=== PATIENT | male | born 1945 | race Caucasian/White ===

== ENCOUNTER → 2024-04-17 07:06 | Outpatient (REF) | payer OTHER, SELFPAY | LOC: RCS 07:06 | PROVIDERS: ATTENDING PHYSICIAN Internal Medicine Cardiovascular Disease; FAMILY PHYSICIAN Family Medicine | DX: E78.2 Mixed hyperlipidemia (principal); I20.89 Other forms of angina pectoris; I45.10 Unspecified right bundle-branch block | CPT/HCPCS: 93017 ==

== ENCOUNTER → 2024-04-20 08:01 | Outpatient (REF) | payer OTHER, SELFPAY | LOC: RCS 08:01 | PROVIDERS: ATTENDING PHYSICIAN Internal Medicine Cardiovascular Disease; FAMILY PHYSICIAN Family Medicine | DX: I20.89 Other forms of angina pectoris (principal); E78.2 Mixed hyperlipidemia; I45.10 Unspecified right bundle-branch block | CPT/HCPCS: 93306 ==

== ENCOUNTER 2024-04-20 08:55 | Day surgery (SDC) | payer OTHER, SELFPAY ==
[2024-04-20] VITALS (13 sets, daily range): BP systolic 104–117; BP diastolic 55–63; BMI 23.2
[2024-04-20] MEDS: LOW STRENGTH ASPIRIN 243 MG PO (09:46)
--- NOTE | 2024-04-20 13:32 | ITS.CL.CATH ---
[employer]ourier Delivery Driver - Catheterization
Cardiac Catheterization
Procedure Report:
CARDIAC CATHETERIZATION REPORT
Date of Procedure: 04/20/2024
Referring: Edgar Hernandez MD
Indication: Angina with abnormal stress test
�
HEMODYNAMIC DATA
AO: 138/75
LV: 138/14
�
LEFT VENTRICULOGRAPHY: Normal left ventricular wall motion with EF 57%
�
CORONARY ANGIOGRAPHY
Dominance: Right
Left Main: Normal
LAD: There is a medium distribution ramus intermedius with 95% proximal stenosis. 30% proximal LAD stenosis and tandem 30% mid LAD stenoses. The large D1 has mild luminal disease. The small to medium sized D2 has diffuse moderate disease
Circumflex: The circumflex gives rise to a tiny OM1 and OM 2 vessels followed by a small OM 3 and a large terminal OM 4. There is 80% mid circumflex stenosis proximal to the takeoff of OM 3 and 90% proximal OM 4 stenosis
RCA: Large dominant vessel with 20% proximal RCA stenosis and otherwise trivial luminal irregularities
Angioplasty: At the conclusion of the diagnostic study, the patient underwent multivessel intervention. Heparin was used for anticoagulation. Plavix 600 mg was administered at the procedure conclusion. An EBU 3.5 guide catheter was used. The
tandem 80% mid circumflex and 90% proximal [id number] were wired with a BMW wire. A second BMW wire was placed in the LAD ramus across the high-grade disease. We were unable to primarily stent the circumflex lesions and performed predilatation
with a 2.5 x 15 Euphora balloon. This allowed easy passage of the 3.25 x 15 Xience DENISE which was deployed to cover the 3.25 x 15 Xience DENISE which was deployed to cover the mid circumflex and proximal OM4 lesions. Stent deployment at 16 jazmyn was
followed by postdilatation with a 3.5 x 12 NC Euphora to 17 jazmyn. The final angiographic result was outstanding. We then turned our attention to the ramus disease. Angioplasty with a 2.0 x 12 Euphora to10 jazmyn was followed by placement of a 2.0 x
15 [place] DENISE deployed at 14 jazmyn and postdilated with a 2.0 NC Euphora to 17 jazmyn. The final angiographic result was outstanding. There were no procedural complications.
�
Closure Device: None-the procedure was performed via the right radial artery. The Justin's test was normal prior to the procedure.
�
Radiation (mGy): 370
DAP (cm2.Gy): 30.3
Fluoroscopy time: 10.5 minutes
�
CONCLUSIONS
1:�Normal left ventricular function with EF 57%
2:�Double vessel CAD as described
3. Successful stenting of the tandem 80% mid circumflex and 90% proximal OM4 lesions with a 3.25 x 15 Xience DENISE postdilated with 3.5 mm noncompliant balloon with outstanding final result
4. Successful stenting of 95% ramus intermedius lesion using 2.0 x 15 [place] frontier DENISE with outstanding final result
5. Continue dual antiplatelet therapy and aggressive risk factor modification with statin to achieve LDL less than 55
�
�
Copy to: Edgar Hernandez MD, Yunior Adrian MD, Emmanuel Brown,
�
Cholo Quinones MD, [facility], [facility]
--- NOTE | 2024-04-20 16:00 | W.PN.UPDATE ---
Update Note
Progress Note Update
79 yo WM s/p PCI LCx and Ramus arteries (same day). He denies cp, sob, yuni diet, voiding, amb w/o dizziness, EKG SR RBBB, no ST changes, R Rad site c/d/i no HT. He will be on DAPT ASA/Plavix. He will stop omeprazole while on Plavix and will switch
to protonix. Cardiac rehab c/s. He will f/u Luisa BARNARD in2 weeks. He is for d/c home after 615p if rad site remains stable.
CONCLUSIONS
1:�Normal left ventricular function with EF 57%
2:�Double vessel CAD as described
3. Successful stenting of the tandem 80% mid circumflex and 90% proximal OM4 lesions with a 3.25 x 15 Xience DENISE postdilated with 3.5 mm noncompliant balloon with outstanding final result
4. Successful stenting of 95% ramus intermedius lesion using 2.0 x 15 [place] frontier DENISE with outstanding final result
5. Continue dual antiplatelet therapy and aggressive risk factor modification with statin to achieve LDL less than 55
�
�
Copy to: Edgar Hernandez MD, Yunior Adrian MD, Emmanuel Brown, DO
�
[2024-04-20] MEDS: NSS 1000 IV (16:06)
[2024-04-21 13:26] LABS: ACT-LR - POC 247 Seconds (116-155)
[2024-04-21 13:26] LABS: ACT-LR - POC 256 Seconds (116-155)
== END 2024-04-20 18:15 | disposition home or self-care (01) ==
LOC: CATH 08:55
PROVIDERS: ATTENDING PHYSICIAN Internal Medicine Cardiovascular Disease; FAMILY PHYSICIAN Family Medicine; OTHER PHYSICIAN Internal Medicine Cardiovascular Disease
DX: I25.119 Atherosclerotic heart disease of native coronary artery with unspecified angina pectoris (principal); I45.10 Unspecified right bundle-branch block; I49.8 Other specified cardiac arrhythmias; Z79.02 Long term (current) use of antithrombotics/antiplatelets; Z79.82 Long term (current) use of aspirin; E78.2 Mixed hyperlipidemia
CPT/HCPCS: 85347; 93005; 93306; 93458; C1725; C1769; C1874; C1894; C9600; Q9967

== ENCOUNTER → 2024-06-12 09:55 | Outpatient (REF) | payer OTHER, SELFPAY | LOC: RAD 09:55 | PROVIDERS: ATTENDING PHYSICIAN Internal Medicine Gastroenterology; FAMILY PHYSICIAN Internal Medicine | DX: K21.9 Gastro-esophageal reflux disease without esophagitis (principal) | CPT/HCPCS: 74246 ==

== ENCOUNTER 2024-06-19 11:44 | Outpatient (RCR) | payer OTHER, SELFPAY | END 2024-06-19 23:59 | disposition home or self-care (01) | LOC: CRHB 11:44 | PROVIDERS: Internal Medicine Cardiovascular Disease; ATTENDING PHYSICIAN Internal Medicine Cardiovascular Disease | DX: I25.10 Atherosclerotic heart disease of native coronary artery without angina pectoris (principal); Z95.5 Presence of coronary angioplasty implant and graft | CPT/HCPCS: 93797; 93798; G0422; G0423 ==

== ENCOUNTER 2024-07-21 11:29 | Outpatient (RCR) | payer OTHER, SELFPAY | END 2024-07-21 23:59 | disposition home or self-care (01) | LOC: CRHB 11:29 | PROVIDERS: ATTENDING PHYSICIAN Internal Medicine Cardiovascular Disease; FAMILY PHYSICIAN Family Medicine | DX: I25.10 Atherosclerotic heart disease of native coronary artery without angina pectoris (principal); Z95.5 Presence of coronary angioplasty implant and graft | CPT/HCPCS: G0422; G0423 ==

== ENCOUNTER 2024-09-18 12:02 | Outpatient (RCR) | payer OTHER, SELFPAY ==
[2024-09-19 08:52] LABS: HDL Cholesterol 43 mg/dl; LDL Cholesterol, Calculated 71 mg/dl; Total Cholesterol 133 mg/dl (50-199); Triglyceride 99 mg/dl (10-149); Very Low Density Lipoprotein 19 mg/dl (0-30)
== END 2024-09-18 23:59 | disposition home or self-care (01) ==
LOC: CRHB 12:02
PROVIDERS: ATTENDING PHYSICIAN Internal Medicine Cardiovascular Disease; FAMILY PHYSICIAN Internal Medicine Cardiovascular Disease
DX: I25.10 Atherosclerotic heart disease of native coronary artery without angina pectoris (principal); Z95.5 Presence of coronary angioplasty implant and graft
CPT/HCPCS: 36415; 80061; G0422; G0423

== ENCOUNTER 2024-10-02 11:26 | Outpatient (RCR) | payer OTHER, SELFPAY | END 2024-10-02 23:59 | disposition home or self-care (01) | LOC: CRHB 11:26 | PROVIDERS: ATTENDING PHYSICIAN Internal Medicine Cardiovascular Disease; FAMILY PHYSICIAN Family Medicine | DX: I25.10 Atherosclerotic heart disease of native coronary artery without angina pectoris (principal); Z95.5 Presence of coronary angioplasty implant and graft | CPT/HCPCS: G0422; G0423 ==

== ENCOUNTER → 2024-12-21 06:50 | Outpatient (REF) | payer OTHER, SELFPAY ==
[2024-12-21 08:56] LABS: HDL Cholesterol 47 mg/dl; LDL Cholesterol, Calculated 56 mg/dl; Very Low Density Lipoprotein 18 mg/dl (0-30)
== END ==
LOC: REG 06:50
PROVIDERS: ATTENDING PHYSICIAN Internal Medicine Cardiovascular Disease; FAMILY PHYSICIAN Internal Medicine
DX: E78.5 Hyperlipidemia, unspecified (principal)
CPT/HCPCS: 36415; 80061